=== PATIENT | female | born 1950 | race Two or more races ===

== ENCOUNTER 2021-11-09 05:36 | Inpatient (IN) | payer OTHER ==
[~2021-11-09] VITALS: Ht 154.9 cm; Wt 120.0 kg
[~2021-11-09 05:36] MED LIST: AMLODIPINE BESY10 MG PO; CRESTOR40 MG PO; ECOTRIN81 MG PO; LEVO-T50 MCG PO; LOSARTAN POTASS25 MG PO; TOPROL XL25 M1 PO
== END 2021-11-12 08:18 | disposition home or self-care (01) | DRG 330 ==
LOC: CIR.AMB 05:36 → O/R 13:01 → SURH 13:01
PROVIDERS: Surgery; ADMIT Colon & Rectal Surgery; ATTEND Colon & Rectal Surgery
PROC: 0DNN4ZZ Release Sigmoid Colon, Percutaneous Endoscopic Approach (ICD-10-PCS; 2021-11-09)
PROC: 3E0H8KZ Introduction of Other Diagnostic Substance into Lower GI, Via Natural or Artificial Opening Endoscopic (ICD-10-PCS; 2021-11-09)
PROC: 4A1BXSH Monitoring of Gastrointestinal Vascular Perfusion using Indocyanine Green Dye, External Approach (ICD-10-PCS; 2021-11-09)
PROC: 0DTF4ZZ Resection of Right Large Intestine, Percutaneous Endoscopic Approach (ICD-10-PCS; principal; 2021-11-09 08:30)
PROC: 07BB4ZZ Excision of Mesenteric Lymphatic, Percutaneous Endoscopic Approach (ICD-10-PCS; 2021-11-09 08:30)
DX: K56.51 Intestinal adhesions [bands], with partial obstruction (principal); K92.1 Melena; R59.9 Enlarged lymph nodes, unspecified; K63.5 Polyp of colon; Z20.822 Contact with and (suspected) exposure to COVID-19